=== PATIENT | female | born 1955 | race Caucasian/White ===

== ENCOUNTER 2017-11-21 07:59 | Observation (INO) | payer BC ==
[~2017-11-21 07:59] MED LIST: DIAZEPAM 5 MG TAB PO; DIPHENHYDRAMINE 50 MG CAP PO; FAMOTIDINE 20 MG TAB PO; SOD CHLORIDE 0.45% 1,000 ML IV
[2017-11-21 09:25] LABS: ADD MAN DIFF? NO
[2017-11-21 09:30] LABS: WHITE BLOOD COUNT 9.8 10^3/ul (4.8-10.8)
[2017-11-21 09:30] LABS: BASOPHILS % 0.4 % (0.0-2.0); EOSINOPHILS # 0.3 10^3/ul (0.0-0.5); EOSINOPHILS % 2.9 % (0.0-7.0); HEMATOCRIT 46.8 % (37.0-47.0); HEMOGLOBIN 15.7 g/dl (12.0-16.0); LYMPHOCYTES # 2.5 10^3/ul (0.8-2.9); LYMPHOCYTES % 25.5 % (15.0-51.0); MEAN CORPUSCULAR HEMOGLOBIN 30.6 pg (29.0-33.0); MEAN CORPUSCULAR HGB CONC 33.5 g/dl (32.0-37.0); MEAN CORPUSCULAR VOLUME 91.2 fl (82.0-101.0); MEAN PLATELET VOLUME 10.1 fl (7.4-10.4); MONOCYTE # 0.7 10^3/ul (0.3-0.9); MONOCYTES % 7.5 % (0.0-11.0); NEUTROPHIL # 6.2 10^3/ul (1.6-7.5); NEUTROPHILS % 63.5 % (39.0-77.0); PLATELET COUNT 201 10^3/UL (140-415); RED BLOOD COUNT 5.13 10^6/ul (4.20-5.40); RED CELL DISTRIBUTION WIDTH 11.7 % (11.5-14.5)
[2017-11-21 09:48] LABS: ANION GAP 12 (8-16); BLOOD UREA NITROGEN 13 mg/dl (7-20); CALCIUM 8.9 mg/dl (8.4-10.2); CARBON DIOXIDE 29 mmol/L (21-31); CHLORIDE 108 mmol/L (97-110); CHOL/HDL RATIO 1.7 RATIO; CHOLESTEROL 86 mg/dl (100-200); CREATININE 0.57 mg/dl (0.44-1.00); GLUCOSE 103 mg/dl (70-220); HDL CHOLESTEROL 49 mg/dl (35-98); LDL CHOLESTEROL,CALCULATED 18 mg/dl; POTASSIUM 4.4 mmol/L (3.5-5.1); SODIUM 145 mmol/L (135-144); TRIGLYCERIDES 95 mg/dl (0-149)
[2017-11-21 09:49] LABS: INR 1.04; PROTIME 13.7 Sec (11.9-14.9); PT RATIO 1.1
[2017-11-21 09:50] LABS: PARTIAL THROMBOPLASTIN TIME 30.9 Sec (25.0-35.0)
[2017-11-21] MEDS ORDERED: FENTAnyl 50 MCG/ML VIAL (10:15)
[2017-11-21] MEDS ORDERED: HEPARIN 1000 UNITS/ML 10 ML INJ (10:15)
[2017-11-21] MEDS ORDERED: MIDAZOLAM 1 MG/ML 2 ML INJ (10:15)
[2017-11-21] MEDS ORDERED: LIDOCAINE 1% (MDV) 10 ML INJ (10:15)
[2017-11-21] MEDS ORDERED: IODIXANOL LOCM 100 ML BTL (10:15)
[2017-11-21] MEDS ORDERED: NITROGLYCERIN (IC) 100 MCG/ML INJ (10:16)
[2017-11-21] MEDS ORDERED: VERAPAMIL 5 MG INJ (10:16)
[2017-11-21] MEDS ORDERED: morphine 2 MG INJ IV ×2 (11:30→17:00)
[2017-11-21] MEDS ORDERED: AL HYDROX/MG HYDROX/SIMETH 30 ML CUP PO (11:30)
[2017-11-21] MEDS ORDERED: ACETAMINOPHEN 325 MG TAB PO ×2 (11:30→17:00)
[2017-11-21] MEDS ORDERED: ONDANSETRON 4 MG INJ IV ×2 (11:30→17:00)
[2017-11-21] MEDS: SOD CHLORIDE 0.9% 1,000 ML IV (12:02)
[2017-11-21] MEDS: ALBUTEROL 0.083% (NEB) 2.5 MG/3 ML AMP HHN (14:07)
[2017-11-21] MEDS ORDERED: NACL 0.9% 3 ML SYG IV (17:00)
[2017-11-21] MEDS ORDERED: HYDROCODONE/APAP (5/325) TAB PO (17:00)
[2017-11-21] MEDS ORDERED: MAGNESIUM HYDROXIDE 30ML CUP PO (17:00)
[2017-11-21] MEDS ORDERED: NITROGLYCERIN (SL) 0.4 MG TAB SL (17:00)
[2017-11-21] MEDS ORDERED: DOCUSATE SODIUM 100 MG CAP PO (17:00)
[2017-11-21] MEDS ORDERED: hydrALAzine 20 MG INJ IV (17:00)
[2017-11-21] MEDS ORDERED: NA PHOSPHATE/BIPHOS 133 ML ENEMA PR (17:00)
[2017-11-21] MEDS ORDERED: LORAZEPAM 2 MG INJ IV (17:00)
[2017-11-21 17:46] LABS: INR 1.08; PROTIME 14.1 Sec (11.9-14.9); PT RATIO 1.1
[2017-11-21 17:47] LABS: PARTIAL THROMBOPLASTIN TIME 30.3 Sec (25.0-35.0)
[2017-11-21 18:05] LABS: FREE T4 (FREE THYROXINE) 1.25 ng/dl (0.78-2.44)
[2017-11-21] MEDS: METHYLPREDNISOLONE 125 MG INJ IV (18:36)
[2017-11-21] MEDS: ALBUTEROL/IPRATROPIUM (NEB) 3 ML AMP HHN (21:07)
[2017-11-21] MEDS: ATORVASTATIN 40 MG TAB PO (22:09)
[2017-11-21] MEDS: CALCIUM CARBONATE 1.25 GM TAB PO (22:10)
[2017-11-21] MEDS: EZETIMIBE 10 MG TAB PO (22:10)
[2017-11-22] MEDS: ALBUTEROL/IPRATROPIUM (NEB) 3 ML AMP HHN ×3 (01:59→09:46)
[2017-11-22 06:28] LABS: WHITE BLOOD COUNT 6.8 10^3/ul (4.8-10.8)
[2017-11-22 06:29] LABS: HEMATOCRIT 46.9 % (37.0-47.0); HEMOGLOBIN 15.8 g/dl (12.0-16.0); MEAN CORPUSCULAR HGB CONC 33.7 g/dl (32.0-37.0); MEAN CORPUSCULAR VOLUME 89.2 fl (82.0-101.0); MEAN PLATELET VOLUME 10.2 fl (7.4-10.4); PLATELET COUNT 199 10^3/UL (140-415); RED BLOOD COUNT 5.26 10^6/ul (4.20-5.40); RED CELL DISTRIBUTION WIDTH 11.8 % (11.5-14.5)
[2017-11-22 06:50] LABS: HEMOGLOBIN A1C 5.8 % (0-5.9)
[2017-11-22 06:52] LABS: ANION GAP 12 (8-16); BLOOD UREA NITROGEN 9 mg/dl (7-20); CARBON DIOXIDE 25 mmol/L (21-31); CHLORIDE 109 mmol/L (97-110); CHOL/HDL RATIO 1.8 RATIO; CHOLESTEROL 96 mg/dl (100-200); CREATININE 0.43 mg/dl (0.44-1.00); GLUCOSE 151 mg/dl (70-220); HDL CHOLESTEROL 52 mg/dl (35-98); LDL CHOLESTEROL,CALCULATED 34 mg/dl; MAGNESIUM 1.8 mg/dl (1.7-2.5); PHOSPHORUS 3.9 mg/dl (2.5-4.9); SODIUM 142 mmol/L (135-144); TRIGLYCERIDES 52 mg/dl (0-149)
[2017-11-22 06:55] LABS: POSITIVE DIFF @See below
[2017-11-22 06:56] LABS: ADD MAN DIFF? YES
[2017-11-22] MEDS: ASPIRIN 81 MG TAB PO (08:40)
[2017-11-22] MEDS: CHOLECALCIFEROL 400 UNITS TAB PO (08:40)
[2017-11-22] MEDS: CALCIUM CARBONATE 1.25 GM TAB PO (08:40)
[2017-11-22] MEDS: ISOSORBIDE MONONITRATE(SR)30 MG TAB PO (08:41)
[2017-11-22 08:43] LABS: THYROID STIMULATING HORMONE 0.098 MIU/L (0.465-4.680)
[2017-11-22 10:10] LABS: BAND NEUTROPHILS #M 0.2 10^3/ul (0.0-0.6); BAND NEUTROPHILS % (M) 3 % (0-4); LYMPHOCYTES #M 1.1 10^3/ul (0.8-2.9); LYMPHOCYTES % (M) 17 % (15-51); PLATELET ESTIMATE NORMAL; POIKILOCYTOSIS 3+ (0-0); POLYCHROMASIA 3+ (0-0); SEG NEUT #M 5.5 10^3/ul (1.6-7.5); SEGMENTED NEUTROPHILS (M) % 80 % (39-77); SMUDGE%M 6 % (0-0)
== END 2017-11-22 13:12 | disposition home or self-care (01) ==
LOC: SDS 07:59 → REC 15:32 → MS1 17:50
DX: I25.10 Atherosclerotic heart disease of native coronary artery without angina pectoris (principal); I34.0 Nonrheumatic mitral (valve) insufficiency; J44.1 Chronic obstructive pulmonary disease with (acute) exacerbation; F17.200 Nicotine dependence, unspecified, uncomplicated; I10 Essential (primary) hypertension; E78.5 Hyperlipidemia, unspecified
CPT/HCPCS: 71045; 71250; 80048; 80061; 83036; 83735; 84100; 84439; 84443; 85025; 85610; 85730; 93005; 93458; 94640; 94664; 99217